=== PATIENT | female | born 1960 | race Caucasian/White ===

== ENCOUNTER 2022-09-20 15:13 | Inpatient (IN) | payer BC ==
[2022-09-20] MEDS ORDERED: Acetaminophen 500 MG TAB ONE (15:32)
[2022-09-20] MEDS ORDERED: HYDROcodone/Acetaminophen 5/325 mg Tablet PO PRN (15:56)
[2022-09-20] MEDS ORDERED: Senokot S 8.6-50 MG TAB PO PRN (15:56)
[2022-09-20] MEDS ORDERED: Ondansetron PF 4 MG/2 ML Vial IVP PRN (15:56)
[2022-09-20] MEDS ORDERED: Acetaminophen 325 MG TAB PO PRN (15:56)
[2022-09-20] MEDS ORDERED: Ipratropium/Albuterol 3 ML NEB NEB PRN (16:00)
[2022-09-20 18:00] VITALS: BMI 42.2
[2022-09-20] MEDS ORDERED: methylPREDNISolone Sod Succ/PF 125 MG/2 ML VIAL IVP SCH ×2 (18:30→20:00)
[2022-09-20] MEDS: Ipratropium/Albuterol 3 ML NEB NEB SCH (18:50)
[2022-09-20] MEDS: guaiFENesin ER 600 MG TAB PO SCH (21:50)
[2022-09-20] MEDS: Doxycycline 100 MG CAP PO SCH (21:50)
[2022-09-20] MEDS: Oseltamivir 75 MG CAP PO SCH (21:50)
[2022-09-20] MEDS: cefTRIAXone\\ROCEPHIN 1 GM in Sodium Chloride 0.9% 100 ML IVPB SCH (21:51)
[2022-09-20] MEDS: Benzonatate 100 MG CAP PO PRN (23:11)
[2022-09-20] MEDS ORDERED: Potassium Chloride 20 MEQ TAB PO SCH (23:15)
[2022-09-20] MEDS ORDERED: Montelukast Sodium 10 mg Tablet PO SCH (23:15)
[2022-09-20] MEDS ORDERED: Rosuvastatin 20 MG TAB PO SCH (23:15)
[2022-09-21 04:54] LABS: #Monocytes 0.1 10x3/uL (0.0-1.1); #Neutrophils 2.5 10x3/uL (1.5-8.4); %Basophils 0.7 % (0.0-2.0); %Lymphocytes 12.4 % (18.0-47.0); %Neutrophils 83.2 % (40.0-75.0); Hemoglobin 12.6 g/dL (12.0-15.5); Mean Corpuscular Hemoglobin 27.4 pg (27.0-33.0); Mean Corpuscular Volume 85.7 fl (81.6-98.3); Mean Platelet Volume 9.1 fl (7.4-10.4); Platelet Count 158 10x3/uL (150-450); RBC Distribution Width 14.8 % (11.5-14.5)
[2022-09-21 07:58] LABS: Anion Gap 15 mmol/L (10-20); BUN (Urea Nitrogen) 13 mg/dL (9.8-20.1); Calc. Creatinine Clearance 100 mL/min (70-130); Calcium 8.8 mg/dL (7.8-10.44); Carbon Dioxide 17 mmol/L (23-31); Chloride 108 mmol/L (98-107); Estimated GFR 61; Glucose 113 mg/dL (80-115); Potassium 4.5 mmol/L (3.5-5.1); Sodium 135 mmol/L (136-145)
[2022-09-21] MEDS: Ipratropium/Albuterol 3 ML NEB NEB SCH ×4 (09:00→20:27)
[2022-09-21] MEDS: Dronedarone HCl 400 MG TAB PO SCH ×2 (09:33→15:24)
[2022-09-21] MEDS: methylPREDNISolone Sod Succ 40 MG VIAL IVP SCH ×2 (09:33→21:34)
[2022-09-21] MEDS: guaiFENesin ER 600 MG TAB PO SCH ×2 (09:33→21:35)
[2022-09-21] MEDS: Oseltamivir 75 MG CAP PO SCH ×2 (09:33→21:34)
[2022-09-21] MEDS: Potassium Chloride 20 MEQ TAB PO SCH (09:33)
[2022-09-21] MEDS: Doxycycline 100 MG CAP PO SCH ×2 (09:33→21:36)
[2022-09-21] MEDS ORDERED: Non-Formulary Medication 1 EACH (Tadalafil [Tadalafil] 20 MG Tablet) PO SCH (09:34)
[2022-09-21] MEDS ORDERED: TREPROSTINIL SODIUM FS SCH (10:15)
[2022-09-21] MEDS: Potassium Chloride 10 MEQ TAB PO SCH (12:25)
[2022-09-21] MEDS: Benzonatate 100 MG CAP PO PRN (15:23)
[2022-09-21] MEDS: Gabapentin 300 MG CAP PO SCH ×2 (15:24→21:35)
[2022-09-21] MEDS ORDERED: Loperamide HCl 2 MG CAP PO PRN (16:07)
[2022-09-21] MEDS ORDERED: Mometasone Furoate 120 PUFF 220 MCG INH SCH (18:30)
[2022-09-21] MEDS ORDERED: Potassium Chloride 20 MEQ TAB PO SCH (21:00)
[2022-09-21] MEDS ORDERED: Rosuvastatin 20 MG TAB PO SCH (21:00)
[2022-09-21] MEDS ORDERED: Montelukast Sodium 10 mg Tablet PO SCH (21:00)
[2022-09-21] MEDS ORDERED: Torsemide 20 MG TAB PO SCH (21:00)
[2022-09-21] MEDS: cefTRIAXone\\ROCEPHIN 1 GM in Sodium Chloride 0.9% 100 ML IVPB SCH (21:36)
[2022-09-22] MEDS: Ipratropium/Albuterol 3 ML NEB NEB SCH ×2 (07:30→12:21)
[2022-09-22] MEDS: Doxycycline 100 MG CAP PO SCH (10:12)
[2022-09-22] MEDS: methylPREDNISolone Sod Succ 40 MG VIAL IVP SCH (10:12)
[2022-09-22] MEDS: Gabapentin 300 MG CAP PO SCH ×2 (10:12→15:00)
[2022-09-22] MEDS: Oseltamivir 75 MG CAP PO SCH (10:13)
[2022-09-22] MEDS: guaiFENesin ER 600 MG TAB PO SCH (10:13)
[2022-09-22] MEDS: Dronedarone HCl 400 MG TAB PO SCH (10:13)
[2022-09-22] MEDS: Torsemide 20 MG TAB PO SCH ×2 (10:13→15:00)
[2022-09-22] MEDS: Potassium Chloride 20 MEQ TAB PO SCH (10:14)
[2022-09-22 12:13] VITALS: BP 118/55; TEMP 97.9
[2022-09-22] MEDS: Potassium Chloride 10 MEQ TAB PO SCH (15:00)
== END 2022-09-22 15:17 | disposition home or self-care (01) | DRG 193 ==
LOC: CSHERS 15:13 → CSHTELE 17:30 → OBSVTOIN 17:31
PROVIDERS: ADMIT Family Medicine; ATTEND Family Medicine
PROC: 5A09457 Assistance with Respiratory Ventilation, 24-96 Consecutive Hours, Continuous Positive Airway Pressure (ICD-10-PCS; principal; 2022-09-20)
DX: J10.01 Influenza due to other identified influenza virus with the same other identified influenza virus pneumonia (principal); J96.21 Acute and chronic respiratory failure with hypoxia; J44.1 Chronic obstructive pulmonary disease with (acute) exacerbation; J44.0 Chronic obstructive pulmonary disease with (acute) lower respiratory infection; I27.20 Pulmonary hypertension, unspecified; Z20.822 Contact with and (suspected) exposure to COVID-19; E78.00 Pure hypercholesterolemia, unspecified; G89.29 Other chronic pain; M54.9 Dorsalgia, unspecified; E66.9 Obesity, unspecified; I48.0 Paroxysmal atrial fibrillation; G47.33 Obstructive sleep apnea (adult) (pediatric); Z99.81 Dependence on supplemental oxygen; Z79.899 Other long term (current) drug therapy; Z79.82 Long term (current) use of aspirin; Z90.710 Acquired absence of both cervix and uterus; Z90.49 Acquired absence of other specified parts of digestive tract; Z82.49 Family history of ischemic heart disease and other diseases of the circulatory system; Z83.3 Family history of diabetes mellitus; Z82.3 Family history of stroke; Z87.891 Personal history of nicotine dependence
CPT/HCPCS: 36415; 80048; 84145; 85025; 87324; 87449; 94640; 94660; 94760; 94762; 99285; J0696; J1650; J2920; J2930; J3490; J7620

== ENCOUNTER 2023-08-30 18:54 | Emergency (ER) | payer BC ==
[2023-08-30 19:48] LABS: #Basophils 0.1 10x3/uL (0.0-0.2); #Eosinphils 0.2 10x3/uL (0.0-0.5); #Monocytes 0.4 10x3/uL (0.0-1.1); #Neutrophils 5.3 10x3/uL (1.5-8.4); %Basophils 0.8 % (0.0-2.0); %Eosinophils 2.6 % (0.0-6.0); %Lymphocytes 17.4 % (18.0-47.0); %Monocytes 5.7 % (0.0-10.0); %Neutrophils 73.1 % (40.0-75.0); Hematocrit 40.3 % (34.9-44.5); Hemoglobin 13.5 g/dL (12.0-15.5); Mean Corpuscular HGB CONC 33.5 g/dL (32.0-36.0); Mean Corpuscular Hemoglobin 27.6 pg (27.0-33.0); Mean Corpuscular Volume 82.2 fl (81.6-98.3); Mean Platelet Volume 9.4 fl (7.4-10.4); Platelet Count 220 10x3/uL (150-450); RBC Distribution Width 15.9 % (11.5-14.5); White Blood Cell (WBC) Count 7.2 10x3/uL (3.5-10.5)
[2023-08-30 19:59] LABS: INR-International Normal Ratio 1.1; PTT 30.6 sec (22.0-33.0); Prothrombin Time 11.4 sec (9.5-12.1)
[2023-08-30 20:01] LABS: ALT (SGPT) 101 U/L (8-55); AST (SGOT) 173 U/L (5-34); Albumin 4.5 g/dL (3.4-4.8); Alkaline Phosphatase 234 U/L (40-110); Anion Gap 18 mmol/L (10-20); BUN (Urea Nitrogen) 22 mg/dL (9.8-20.1); Bilirubin, Total 0.9 mg/dL (0.2-1.2); Calc. Creatinine Clearance 0 mL/min (70-130); Calcium 8.5 mg/dL (7.8-10.44); Carbon Dioxide 19 mmol/L (23-31); Chloride 106 mmol/L (98-107); Estimated GFR 33; Globulin 2.4 g/dL (2.4-3.5); Glucose 105 mg/dL (80-115); Magnesium 2.4 mg/dL (1.6-2.6); Protein, Total 6.9 g/dL (5.8-8.1); Sodium 139 mmol/L (136-145)
[2023-08-30 20:08] LABS: Troponin I 0.016 ng/mL (< 0.028)
[2023-08-30 21:01] LABS: SARS-CoV-2 NAA Rapid Test Not Detected (NotDetected)
[2023-08-30] MEDS ORDERED: Aspirin 81 mg Enteric Coated Tablet ONE (21:08)
[2023-08-30] MEDS ORDERED: Furosemide 40 MG (4 mL) VIAL ONE (21:08)
== END 2023-08-31 02:15 | disposition short-term general hospital (02) ==
LOC: CSHERS 18:54
DX: I27.20 Pulmonary hypertension, unspecified (principal); R09.02 Hypoxemia; I11.0 Hypertensive heart disease with heart failure; I50.9 Heart failure, unspecified; Z87.891 Personal history of nicotine dependence; I48.91 Unspecified atrial fibrillation; I47.10 Supraventricular tachycardia, unspecified; E78.00 Pure hypercholesterolemia, unspecified; E66.9 Obesity, unspecified; G47.30 Sleep apnea, unspecified; J45.998 Other asthma
CPT/HCPCS: 70450; 71045; 80053; 83735; 83880; 84484; 85025; 85610; 85730; 93005; 96374; J1940

== ENCOUNTER 2024-04-27 13:27 | Outpatient (CLI) | payer BC | END 2024-04-27 13:28 | disposition home or self-care (01) | LOC: CSHMAMMO 13:27 | PROVIDERS: ATTEND Student in an Organized Health Care Education/Training Program | DX: Z12.31 Encounter for screening mammogram for malignant neoplasm of breast (principal) | CPT/HCPCS: 77063; 77067 ==